=== PATIENT | male | born 1940 | race Caucasian/White ===

== ENCOUNTER 2020-12-26 02:19 | Observation (INO) | payer MEDICARE, OTHER ==
[2020-12-26] VITALS (7 sets, daily range): BP systolic 127–191; BP diastolic 69–99
[~2020-12-26] VITALS: Ht 188 cm; Wt 106.4 kg
[~2020-12-26 02:19] MED LIST: HYDROCHLOROTH12.5 MG PO; LISI-167 PO; LISI-170 PO; METO25TA91 PO
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
[2020-12-26] MEDS ORDERED: LABETALOL 5MG/ML, 20ML ONE (02:57)
[2020-12-26] MEDS ORDERED: SODIUM CHLORIDE FLUSH 10ML SYR IVF ONE (03:00)
[2020-12-26] MEDS ORDERED: LABETALOL 5MG/ML, 20ML IVPush ONE (03:00)
--- NOTE | 2020-12-26 03:00 | NUR ---
PT MEDICATED PER YASIR, NAD, APPEARS COMFORTABLE, NO OTHER CHANGES IN CONDITION AT THIS TIME. WCTM.
[2020-12-26 03:08] LABS: BASOPHILS % (AUTO) 3 % (0-1); EOSINOPHILS % (AUTO) 5 % (1-7); LYMPHOCYTES % (AUTO) 16 % (22-44); MEAN CORPUSCULAR HEMOGLOBIN 31.9 pg (27.5-34.5); MEAN CORPUSCULAR HGB CONC 34.9 g/dL (33.2-36.2); MEAN PLATELET VOLUME 8.4 fL (7.4-10.4); MONOCYTES % (AUTO) 10 % (2-9); NEUTROPHILS % (AUTO) 66 % (42-75); PLATELET COUNT 148 x10^3/uL (130-400); RED BLOOD COUNT 5.04 x10^6/uL (4.38-5.82)
[2020-12-26 03:12] LABS: MD NO
[2020-12-26 03:19] LABS: ALANINE AMINOTRANSFERASE 57 U/L (12-78); ALBUMIN 3.6 g/dL (3.4-5.0); ANION GAP 8 mmol/L (5-15); CALCIUM 8.2 mg/dL (8.5-10.1); CHLORIDE 109 mmol/L (98-107)
[2020-12-26 03:24] LABS: ALKALINE PHOSPHATASE 55 U/L (45-117); BILIRUBIN,TOTAL 0.6 mg/dL (0.2-1.0); CREATININE 1.16 mg/dL (0.7-1.3); TOTAL PROTEIN 7.6 g/dL (6.4-8.2); TROPONIN I 0.022 ng/mL (0.000-0.045)
--- NOTE | 2020-12-26 04:10 | NUR ---
Patient is resting comfortably in bed. Bed in lowest, rails engaged, call light on lap. Vital Signs within normal limits. LIGHTS DIMMED FOR COMFORT, PT REPORTS DECREASED ANXIETY AFTER LIGHTS DIMMED. WCTM. TBADM
[2020-12-26] MEDS ORDERED: POLYETHYLENE GLYCOL 17 GM PACKET PO PRN (05:00)
[2020-12-26] MEDS ORDERED: TEMAZEPAM 15 MG CAPSULE PO PRN (05:00)
[2020-12-26] MEDS ORDERED: ONDANSETRON 2MG/ML, 2ML IVPush PRN (05:00)
[2020-12-26] MEDS ORDERED: DOCUSATE 100 MG CAPSULE PO PRN (05:00)
[2020-12-26] MEDS ORDERED: hydrALAzine 20 MG/ML, 1ML IVPush PRN (05:00)
[2020-12-26] MEDS ORDERED: LORazepam 2 MG/ML, 1ML IVPush PRN (05:00)
[2020-12-26] MEDS ORDERED: BISACODYL 10 MG SUPP PR PRN (05:00)
[2020-12-26] MEDS ORDERED: ACETAMINOPHEN 325 MG TABLET PO PRN (05:00)
[2020-12-26] MEDS ORDERED: MELATONIN 5 MG TABLET PO PRN (05:00)
[2020-12-26] MEDS ORDERED: OXYcodone IR 5MG TABLET PO PRN (05:00)
[2020-12-26 05:42] LABS: TROPONIN I 0.021 ng/mL (0.000-0.045)
--- NOTE | 2020-12-26 05:43 | NUR ---
REPORT CALLED TO GONSALO WALKER, PT CARE TO BE TRANSFERRED UPON ARRIVAL TO THE FLOOR. PT NAD, RESTING ON GURNEY, APPEARS COMFORTABLE, EYES CLOSED, EVEN AND UNLABORED RESPIRATIONS. DENIES ADDITIONAL QUESTIONS OR NEEDS AT THIS TIME. NELSY.
[2020-12-26] MEDS ORDERED: METOPROLOL SUCCINATE 25 MG TAB.ER.24H PO SCH (06:00)
[2020-12-26] MEDS ORDERED: REGADENOSON 0.4 MG/5 ML SYRINGE ONE (07:41)
[2020-12-26] MEDS: FAMOTIDINE 20 MG TABLET PO SCH ×2 (09:38→20:53)
[2020-12-26] MEDS: LISINOPRIL 20 MG TABLET PO SCH ×2 (09:38→20:52)
[2020-12-26] MEDS: HYDROCHLOROTHIAZIDE 25 MG TABLET PO SCH (11:30)
[2020-12-26 21:16] LABS: TROPONIN I 0.016 ng/mL (0.000-0.045)
[2020-12-27 00:13] VITALS: BP 131/72
[2020-12-27 04:52] LABS: BASOPHILS % (AUTO) 0 % (0-1); EOSINOPHILS % (AUTO) 5 % (1-7); LYMPHOCYTES % (AUTO) 19 % (22-44); MEAN CORPUSCULAR HEMOGLOBIN 31.9 pg (27.5-34.5); MEAN CORPUSCULAR HGB CONC 34.6 g/dL (33.2-36.2); MEAN PLATELET VOLUME 8.6 fL (7.4-10.4); MONOCYTES % (AUTO) 13 % (2-9); NEUTROPHILS % (AUTO) 63 % (42-75); PLATELET COUNT 143 x10^3/uL (130-400); RED BLOOD COUNT 4.78 x10^6/uL (4.38-5.82); RED CELL DISTRIBUTION WIDTH 13.9 % (9.4-14.8)
[2020-12-27 04:54] LABS: MD NO
[2020-12-27 05:03] LABS: CHLORIDE 106 mmol/L (98-107)
[2020-12-27 05:21] LABS: ANION GAP 6 mmol/L (5-15); CALCIUM 8.4 mg/dL (8.5-10.1); CREATININE 1.05 mg/dL (0.7-1.3)
[2020-12-27] MEDS ORDERED: METOPROLOL SUCCINATE 50 MG TAB.ER.24H PO SCH (06:00)
[2020-12-27 07:52] VITALS: BP 173/82
[2020-12-27] MEDS ORDERED: LISI1TAB20 PO (08:08)
[2020-12-27] MEDS: FAMOTIDINE 20 MG TABLET PO SCH (08:47)
[2020-12-27] MEDS: LISINOPRIL 20 MG TABLET PO SCH (08:47)
[2020-12-27] MEDS: HYDROCHLOROTHIAZIDE 25 MG TABLET PO SCH (08:47)
[2020-12-27 13:08] VITALS: BP 139/83
== END 2020-12-27 13:28 | disposition home or self-care (01) ==
LOC: ED 04:26 → EDIP 04:27 → INTOOBSV 04:27 → 5SO 05:57 → DCLOUNGE 12-27 13:22
PROVIDERS: ADMIT Internal Medicine; ATTEND Family Medicine
DX: I16.0 Hypertensive urgency (principal); R07.89 Other chest pain; M79.602 Pain in left arm; I10 Essential (primary) hypertension; R94.31 Abnormal electrocardiogram [ECG] [EKG]; M85.80 Other specified disorders of bone density and structure, unspecified site; I45.9 Conduction disorder, unspecified; F10.21 Alcohol dependence, in remission; Z79.899 Other long term (current) drug therapy; Z96.659 Presence of unspecified artificial knee joint; Z95.0 Presence of cardiac pacemaker
CPT/HCPCS: 36415; 71045; 78452; 80048; 80053; 83735; 84100; 84443; 84484; 85025; 93005; 93017; 96374; 99285; A9502; G0378; J2785